=== PATIENT | male | born 1965 | race Two or more races ===

== ENCOUNTER 2017-10-27 11:55 | Outpatient (CLI) | payer OTHER | END 2017-10-27 12:25 | disposition home or self-care (01) | LOC: RAD 501 11:55 | DX: M19.012 Primary osteoarthritis, left shoulder (principal) ==

== ENCOUNTER 2018-04-23 08:33 | Outpatient (CLI) | payer OTHER | END 2018-04-23 11:07 | disposition home or self-care (01) | LOC: NUCLEAR 08:33 | DX: I11.9 Hypertensive heart disease without heart failure (principal); I47.2 Ventricular tachycardia ==